=== PATIENT | female | born 1970 | race Caucasian/White ===

== ENCOUNTER 2019-06-05 22:52 | Emergency (ER) | payer MEDICAID ==
[~2019-06-05] VITALS: Ht 157.5 cm; Wt 52.2 kg
[2019-06-06 01:00] VITALS: BP 156/59
== END 2019-06-06 01:40 | disposition left against medical advice (07) ==
LOC: ER 22:54
DX: R51 Headache (principal); Z53.21 Procedure and treatment not carried out due to patient leaving prior to being seen by health care provider